=== PATIENT | female | born 1940 | race Caucasian/White ===

== ENCOUNTER 2024-01-19 14:12 | Emergency (ER) | payer MEDICARE ==
[2024-01-19 14:37] LABS: BASOPHILS ABSOLUTE AUTO 0.04 K/uL (0.00-0.20); BASOPHILS PERCENT AUTO 0.6 % (0.0-2.0); EOSINOPHILS ABSOLUTE AUTO 0.04 K/uL (0.00-0.50); EOSINOPHILS PERCENT AUTO 0.6 % (0.0-5.0); HEMATOCRIT 44.4 % (34.0-46.0); HEMOGLOBIN 14.7 g/dL (11.7-15.5); LYMPHOCYTES ABSOLUTE AUTO 1.67 K/uL (0.50-3.50); LYMPHOCYTES PERCENT AUTO 23.1 % (10.0-50.0); MEAN CORPUSCULAR HEMOGLOBIN 32.3 pg (28.2-33.3); MEAN CORPUSCULAR HGB CONC 33.1 g/dL (31.7-36.0); MEAN CORPUSCULAR VOLUME 97.6 fL (84.0-98.0); MONOCYTES ABSOLUTE AUTO 0.63 K/uL (0.00-1.00); MONOCYTES PERCENT AUTO 8.7 % (2.0-14.0); NEUTROPHILS ABSOLUTE AUTO 4.86 K/uL (1.40-7.00); PLATELET COUNT,PLT 198 K/uL (150-350); RED BLOOD CELL COUNT 4.55 M/uL (3.77-5.09); RED CELL DISTRIBUTION WIDTH 13.4 % (11.2-14.1); WHITE BLOOD CELL COUNT,WBC 7.2 K/uL (4.0-10.2)
[2024-01-19 15:02] LABS: ANION GAP 5.6 meq/L (7-15); BILIRUBIN TOTAL 0.7 mg/dL (0.2-1.0); CALCIUM 8.6 mg/dL (8.5-10.1); CARBON DIOXIDE,CO2 24.4 mmol/L (21.0-32.0); CREATININE 0.96 mg/dL (0.51-1.17); EST CRCL DRUG DOSING (CG) 40.11 mL/min; MAGNESIUM 1.8 mg/dL (1.8-2.4); PROTEIN TOTAL,TP 7.8 g/dL (6.4-8.2)
[2024-01-19] MEDS: Aspirin 81 MG Tab.EC ONE (15:15)
[2024-01-19] MEDS: Aspirin 81 MG Tab.Chew PO ONE (15:15)
[2024-01-19] MEDS: Iopamidol 755 Mg/ML 100 ML Bottle IVPUSH ONE (15:47)
[2024-01-19] MEDS: Labetalol 20 MG/4 ML Syringe IVPUSH ONE ×2 (15:52→16:22)
[2024-01-19] MEDS: Heparin Sodium 5,000 Units/ML Vial IVPUSH ONE (15:52)
[2024-01-19] MEDS: Heparin Sodium/0.45% NaCl 500 ML IV SCH (15:53)
[2024-01-19 15:57] LABS: PROTHROMBIN TIME 9.8 SEC (9.0-11.1)
[2024-01-19] MEDS: Sodium Chloride 0.9% 10 ML Syringe FLUSH PRN (16:26)
[2024-01-19] MEDS: Labetalol 100 MG in Sodium Chloride 0.9% 80 ML IV SCH (16:48)
== END 2024-01-19 17:24 ==
LOC: LL.ED 14:12
DX: I26.92 Saddle embolus of pulmonary artery without acute cor pulmonale (principal); I82.403 Acute embolism and thrombosis of unspecified deep veins of lower extremity, bilateral; Z79.82 Long term (current) use of aspirin; Z88.2 Allergy status to sulfonamides
CPT/HCPCS: 36415; 71046; 71275; 80053; 83735; 83880; 84484; 85025; 85379; 85610; 85730; 93005; 93971; 94761; 96365; 96367; 96376; 99285-25; A9270-GY; J1644; J1920; J1921; J3490; Q9967